=== PATIENT | female | born 1975 | race Caucasian/White ===

== ENCOUNTER 2016-11-19 04:59 | Inpatient (IN) | payer BC ==
[~2016-11-19 04:59] MED LIST: NORCO 5/325 TAB1 TAB PO; PERCOCET 5/3251 TAB PO; ZOFRAN ODT4 MG/UDTAB PO
[2016-11-19] MEDS ORDERED: levothyroxine (05:11)
[2016-11-19 05:26] LABS: BASO % 0.3 % (0-2); EOS % 1.9 % (0-7); EOSINOPHIL ABSOLUTE COUNT 0.1 tho/cmm (0.0-0.7); HCT-HEMATOCRIT 40.3 % (34.0-49.0); HGB-HEMOGLOBIN 13.7 gm/dl (12.0-15.5); IMMATURE GRANULOCYTES ABSOLUTE 0.01 tho/cmm (0-0.03); IMMATURE GRANULOCYTES PERCENT 0.1 % (0-0.3); LYMPH % 35.2 % (20-45); LYMPH ABSOLUTE COUNT 2.6 tho/cmm (0.8-4.5); MCH (MEAN CORPUSCULAR HGB) 30.3 pg (28.0-32.0); MCV (MEAN CELL VOLUME) 89.2 fl (82.0-96.0); MEAN PLATELET VOLUME 10.4 cmc (9.4-12.4); MONO % 9.7 % (0-12); MONOCYTE ABSOLUTE COUNT 0.7 tho/cmm (0.0-1.2); NEUTROPHIL ABSOLUTE COUNT 3.9 tho/cmm (1.6-8.0); NEUTROPHIL-AUTOMATED 3.9 tho/cmm (1.6-8.0); NEUTROPHILS % 52.8 % (40-80); PLATELET COUNT 268 tho/cmm (150-450); RED BLOOD COUNT 4.52 mil/cmm (4.00-5.20); RED CELL DISTRIBUTION WIDTH 13.3 % (12.4-16.4); WHITE BLOOD COUNT 7.3 tho/cmm (4.0-10.0)
[2016-11-19 05:40] LABS: ANION GAP 17 mmol/L (0-20); BLOOD UREA NITROGEN 10 mg/dl (6-24); CALCIUM 8.6 mg/dl (8.5-10.5); CARBON DIOXIDE-VENOUS 21 mmol/L (22-32); CHLORIDE 106 mmol/l (96-110); CREATININE 0.69 mg/dl (0.50-1.10); GLUCOSE 146 mg/dL (70-110); POTASSIUM 3.6 mmol/L (3.7-5.1); SODIUM 140 mmol/L (135-145); eGFR VALUE FOR BLACK >90 mL/Min
[2016-11-19 05:52] LABS: PREGNANCY-SERUM NEGATIVE (NEGATIVE)
[2016-11-19 07:02] LABS: ALB/GLOB RATIO 1.2 (0.8-2.0); BILIRUBIN,DIRECT 0.1 mg/dl (0.0-0.3); BILIRUBIN,INDIRECT 0.3 mg/dL (0.0-1.0); BILIRUBIN,TOTAL 0.4 mg/dl (0-1.5)
--- NOTE | 2016-11-19 20:53 | NUR ---
VIRTUAL CARE NOTE: ASSESMENT DEFERRED. PT. SLEEPING.
[2016-11-20 06:16] LABS: BASO % 0.1 % (0-2); HCT-HEMATOCRIT 32.7 % (34.0-49.0); HGB-HEMOGLOBIN 10.9 gm/dl (12.0-15.5); IMMATURE GRANULOCYTES ABSOLUTE 0.03 tho/cmm (0-0.03); IMMATURE GRANULOCYTES PERCENT 0.2 % (0-0.3); LYMPH % 10.2 % (20-45); LYMPH ABSOLUTE COUNT 1.5 tho/cmm (0.8-4.5); MCHC MEAN CORPUSCULAR HGB CONC 33.3 % (32.0-36.0); MCV (MEAN CELL VOLUME) 90.1 fl (82.0-96.0); MEAN PLATELET VOLUME 10.7 cmc (9.4-12.4); MONO % 8.3 % (0-12); MONOCYTE ABSOLUTE COUNT 1.2 tho/cmm (0.0-1.2); NEUTROPHIL ABSOLUTE COUNT 11.7 tho/cmm (1.6-8.0); NEUTROPHIL-AUTOMATED 11.7 tho/cmm (1.6-8.0); NEUTROPHILS % 81.2 % (40-80); PLATELET COUNT 242 tho/cmm (150-450); RED BLOOD COUNT 3.63 mil/cmm (4.00-5.20); RED CELL DISTRIBUTION WIDTH 13.5 % (12.4-16.4)
[2016-11-20 06:17] LABS: WHITE BLOOD COUNT 14.4 tho/cmm (4.0-10.0)
[2016-11-20 06:24] LABS: ANION GAP 10 mmol/L (0-20); BLOOD UREA NITROGEN 7 mg/dl (6-24); CALCIUM 8.3 mg/dl (8.5-10.5); CARBON DIOXIDE-VENOUS 27 mmol/L (22-32); CHLORIDE 104 mmol/l (96-110); GLUCOSE 127 mg/dL (70-110); POTASSIUM 4.1 mmol/L (3.7-5.1); SODIUM 137 mmol/L (135-145); eGFR VALUE FOR BLACK >90 mL/Min
[2016-11-20 12:26] LABS: URINE APPEARANCE CLEAR; URINE BILIRUBIN NEGATIVE (NEG); URINE BLOOD NEGATIVE (NEG); URINE COLOR PALE YELLOW; URINE GLUCOSE (UA) NEGATIVE (NEG); URINE KETONE NEGATIVE (NEG); URINE LEUKOCYTE ESTERASE POSITIVE (NEG); URINE NITRITE NEGATIVE (NEG); URINE PROTEIN NEGATIVE (NEG); URINE SPECIFIC GRAVITY 1.005 (1.003-1.030)
[2016-11-20 12:35] LABS: URINE RBC 0 /[HPF] (0-5); URINE WBC 0-3 /[HPF] (0-5)
--- NOTE | 2016-11-20 14:53 | NUR ---
VIRTUAL CARE NOTE: PT AWAKE, RESTING IN BED, VISITOR AT BEDSIDE. PT STATES SHE IS FEELING PRETTY GOOD TODAY, DOES C/O OF SHOULDER DISCOMFORT-DISCUSSED PAIN MANAGEMENT OPTIONS, PAGED AIDE FOR WARM BLANKET TO APPLY TO SHOULDERS. PT STATES TOLERATING CL DIET. DR ARIAS ROUNDED JUST PRIOR TO VN VISIT. ENC AMBULATION. VN WILL CONTINUE TO MONITOR RECORD AND FOLLOW W/ PT
--- NOTE | 2016-11-20 19:23 | NUR ---
VIRTUAL CARE NOTE: PT. IN BED, STATES HAS BEEN WALKING, IS TOLERATING HER NEW DIET, AND IS PASSING FLATUS AND STOOLS. SHE ALSO STATES HER PAIN IS TOLERABLE. PRAISE GIVEN AND ENCOURAGED TO KEEP UP THE GREAT WORK OF USING HER I.S. AND AMBULATING. DENIES FURTHER QUESTIONS OR NEEDS AT THIS TIME. INSTRUCTED TO CALL FOR FUTURE NEEDS. STATES VERBAL AGREEMENT.
[2016-11-21] MEDS ORDERED: PERCOCET 5-3251 EACH PO (13:17)
[2016-11-21] MEDS ORDERED: COLACE100 M1 PO (13:18)
[2016-11-21] MEDS ORDERED: OXYCODONE HCL5 M1 PO (13:21)
== END 2016-11-21 13:45 | DRG 329 ==
LOC: EDMED 04:59 → EMR2 08:13 → 5WD 12:51
PROVIDERS: Emergency Medicine; ADMIT Surgery
PROC: 0DTF4ZZ Resection of Right Large Intestine, Percutaneous Endoscopic Approach (ICD-10-PCS; principal; 2016-11-19)
DX: Q43.3 Congenital malformations of intestinal fixation (principal); K56.2 Volvulus; Z87.442 Personal history of urinary calculi; Z88.0 Allergy status to penicillin; Z88.2 Allergy status to sulfonamides; E03.9 Hypothyroidism, unspecified
CPT/HCPCS: J1170; J1335; J1650; J1885; J2270; J2405; J3480; J7030